=== PATIENT | male | born 1935 | race African-American/Black ===

== ENCOUNTER 2016-07-12 14:47 | Inpatient (IN) | payer MEDICARE, OTHER ==
[2016-07-09 11:10] LABS: INTERNATIONAL NORMAL RATI 2.3 UNITS (-); PROTIME (NOT ORD) 25.2 SEC (12.0-14.5)
--- NOTE | ~2016-07-12 | DS ---
Discharge Summary [address] [place]. [address] NAME: LOTTIE TIRADO JR : 39 STATUS : DIS IN PAT#: [id number] AGE: 80 ADM/REG DATE : 07/12/16 MR#: [id number] REPORT SERV DATE: 07/17/16 DICTATED BY: OLIVIA MESA DATE: 07/16/16 REPORT STATUS : Draft TRANSCRIBED BY: MODL DATE: 07/16/16 ADMISSION DATE: 07/12/2016 DISCHARGE DATE: 07/16/2016 REASON FOR ADMISSION: Abdominal pain secondary to volvulus. HISTORY OF PRESENT ILLNESS: Please refer to Dr. Sun's history and physical dated 07/12/2016 regarding the patient's admission. In brief, the patient is admitted to Hospice Service for his acute kidney injury along with volvulus. HOSPITAL COURSE: 1. The patient had an uncomplicated hospital course for his acute kidney injury on CKD, stage 3. The patient's nephrotoxic agents were held. CT scan was unremarkable for any urinary obstruction. He was given IV fluids. His acute kidney injury had resolved, and he is back to his baseline. 2. For sigmoid distention concerning for volvulus, Dr. Douglas with GI Medicine performed a colonoscopy and decompressed his volvulus without any complications. The following day, the patient had complained of some lower abdominal pain. I had obtained a KUB, which was concerning for possible sigmoid volvulus. I had asked Dr. Douglas to revisit the patient, and he had consulted Surgery without re-evaluation. Surgery saw the patient the following day, at which point, his abdominal pain had resolved and there was no surgical intervention, and the patient was back to his baseline. 3. History of atrial fibrillation. He is on chronic anticoagulation. He is rate controlled. This has been stable. 4. Hypothyroidism. This has been stable on his medications. 5. Hypertension, which also is stable. DISPOSITION: The patient will be discharged today to [facility] back for long-term SNF in a stable condition. DISCHARGE DIAGNOSES: 1. Acute on chronic kidney disease stage 3, now resolved. 2. Volvulus, now resolved. 3. Paroxysmal atrial fibrillation, on chronic Coumadin. PROCEDURES: 1. Consultation with Dr. Douglas, colonoscopy. 2. Consultation with Surgery, [facility]. 3. Water-soluble contrasted enema study. DISCHARGE MEDICATIONS: 1. Vitamin C 500 mg twice a day. 2. Aspirin 81 mg daily. 3. Amiodarone 200 mg twice a day. 4. Bentyl 20 mg 3 times a day. 5. Colace 100 mg every 48 hours. Discharge Summary [address] [address] NAME: LOTTIE TIRADO JR : 37 STATUS : DIS IN PAT#: [id number] AGE: 80 ADM/REG DATE : 07/12/16 MR#: [id number] REPORT SERV DATE: 07/17/16 DICTATED BY: OLIVIA MESA DATE: 07/16/16 REPORT STATUS : Draft TRANSCRIBED BY: RENNY DATE: 07/16/16 6. Xalatan daily. 7. Levothyroxine. 8. MiraLAX twice a day. 9. Coumadin 2.5 mg every evening. 10.Alpha-lipoic acid 600 mg daily. 11.Fenofibrate 54 mg daily. 12.Lasix 40 mg daily. 13.Lisinopril 10 mg daily. 14.K-Dur 20 mEq daily. 15.[place] p.r.n. 16.Benefiber 1 teaspoon twice a day. DISPOSITION: He was discharged back to [facility]. This is Dr. Olivia Mesa spending over 30 minutes on discharge planning and coordination of care on Mr. Tirado. CAROL/RENNY Olivia Mesa MD / [id number] CC: Olivia Mesa MD
--- NOTE | ~2016-07-12 | HP ---
History And Physical [address] [place]. [address] NAME: LOTTIE TIRADO JR : 37 STATUS : ADM IN PAT#: [id number] AGE: 80 ADM/REG DATE : 07/12/16 MR#: [id number] REPORT SERV DATE: 07/13/16 DICTATED BY: SELAM ZABALA DATE: 07/12/16 REPORT STATUS : Draft TRANSCRIBED BY: MODL DATE: 07/12/16 DATE OF ADMISSION: 07/12/2016 POINT OF ENTRY: [facility] Emergency Department. CHIEF COMPLAINT: Abdominal pain. HISTORY OF PRESENT ILLNESS: Mr. Tirado is a 80-year-old gentleman with history of chronic kidney disease stage 3, baseline creatinine approximately 1.3 to 1.6 as well as hypertension; atrial fibrillation, on Coumadin; and hypothyroidism who presents to the emergency department today with reports of abdominal pain and distention. The patient reports that for the past few days he has had some vague complaints of lower quadrant and periumbilical abdominal pain with some associated nausea. He states he denies any vomiting. He states his last bowel movement was today. He states that his bowel movements recently have been more liquid and loose in nature. The patient also reports some chills and shakes today, but denies any fevers or night sweats. Also, denies any chest pain, shortness of breath, dysuria, melena, hematochezia, or hemoptysis. Initial evaluation in the emergency department notable for a creatinine of 3.05, above his baseline, as well as a CT of the abdomen and pelvis concerning for possible redundant sigmoid colon with distention of approximately 11 cm; volvulus was not identified, but could not be ruled out. The patient was subsequently admitted to the Hospitalist Service for further evaluation and management. COMPREHENSIVE REVIEW OF SYSTEMS: Otherwise, negative unless listed in history of present illness. PREVIOUS MEDICAL HISTORY: 1. Chronic kidney stage 3, baseline creatinine approximately 1.3 to 1.6. 2. Paroxysmal atrial fibrillation, on Coumadin. 3. Hypertension. 4. Spinal stenosis. 5. Hypothyroidism. 6. History of diabetes. No longer on medications. 7. Status post pacemaker insertion. SURGICAL HISTORY: Bilateral total hip. ALLERGIES: NO KNOWN DRUG ALLERGIES. HOME MEDICATIONS: 1. Amiodarone 200 mg b.i.d. 2. Vitamin C 500 mg b.i.d. History And Physical [address] [place]. [address] NAME: LOTTIE TIRADO JR : 37 STATUS : ADM IN PAT#: [id number] AGE: 80 ADM/REG DATE : 07/12/16 MR#: [id number] REPORT SERV DATE: 07/13/16 DICTATED BY: SELAM ZABALA DATE: 07/12/16 REPORT STATUS : Draft TRANSCRIBED BY: RENNY DATE: 07/12/16 3. Aspirin 81 mg daily. 4. Bentyl 20 mg t.i.d. 5. Colace 100 mg q.48 hours. 6. Lofibra 54 mg daily. 7. Lasix 20 mg q.h.s. 8. Lasix 40 mg daily. 9. Dante 5/325 one tab q.4 hours p.r.n. 10.Xalatan drops q.h.s. 11.Levothyroxine 100 mcg daily. 12.Alpha lipoic acid 600 mg daily. 13.Lisinopril 10 mg daily. 14.MiraLAX one packet daily. 15.Potassium chloride 20 mEq daily. 16.Coumadin 2.5 mg daily. SOCIAL HISTORY: Denies any tobacco, alcohol, or illicits. He is now a long-term resident of [facility]. FAMILY MEDICAL HISTORY: Mother of complications of gunshot wound. Father with cancer, type unknown. Siblings of complications of alcoholism. LABS AND IMAGIN. White count is 10.4, hemoglobin 11.2, hematocrit is 31.0, platelet count is 202. INR 2.7. 2. Sodium is 138, potassium 3.3, chloride 102, carbon dioxide 28, BUN 58, creatinine 3.05, glucose is 122, calcium is 8.5, protein 7.2, albumin is 2.9, bilirubin is 0.7, ALT is 23, AST 20, alkaline phosphatase is 43. 3. Lipase is 131. 4. Urinalysis. Spec gravity is 1.013. No evidence of any infection. CT scan of the abdomen and pelvis shows a redundant sigmoid colon with very prominent gas distention of the sigmoid colon measured up to 11 cm in diameter. No definite twist or volvulus was identified, however, intermittent volvulus was not excluded in the appropriate clinical setting. Sigmoid colon extends in the upper abdomen anterior to the liver. There is some focal narrowing of the mid sigmoid colon, likely due to folding rather than stenosis. Moderate to large amount of stool in the ascending and transverse colon. PHYSICAL EXAMINATION: VITAL SIGNS: Temperature is 98.1 degrees Fahrenheit, pulse is 65, respirations 18, saturating 99% on room air, blood pressure is 104/55. On recheck, blood pressure is now to 127/71, pulse is 65, saturating 93% on room air. GENERAL: The patient is awake, alert, in no acute distress. Resting comfortably in bed. He is a well-developed, well-nourished, elderly male. HEENT: Atraumatic and normocephalic. Moist mucous membranes. Pupils equal, round, reactive to light and accommodation. Extraocular eye movements are intact. No scleral icterus. NECK: No jugular venous distention. No carotid bruits. CARDIAC: Regular rate and rhythm. No murmurs, rubs, or gallops. Normal S1, S2. History And Physical [address] [address] NAME: LOTTIE TIRADO JR : 39 STATUS : ADM IN [facility]#: [id number] AGE: 80 ADM/REG DATE : 07/12/16 MR#: [id number] REPORT SERV DATE: 07/13/16 DICTATED BY: SELAM ZABALA DATE: 07/12/16 REPORT STATUS : Draft TRANSCRIBED BY: RENNY DATE: 07/12/16 LUNGS: Clear to auscultation bilaterally. No wheezes, rhonchi, or crackles. ABDOMEN: Just obese and distended. No rebound, guarding, or rigidity. It is soft and nontender. Does have some tympany on percussion anteriorly. LOWER EXTREMITIES: Warm and perfused. No cyanosis or clubbing. Has trace pedal edema. SKIN: Warm and dry. PSYCH: Affect is appropriate. NEURO: Alert and oriented x3. Cranial nerves II through XII grossly intact. Speech is normal. Gait not assessed. ASSESSMENT AND PLAN: Mr. Tirado is a 80-year-old gentleman, history of chronic kidney stage 3, who presents with abdominal pain, and found to have evidence of significant sigmoid colonic distention concerning for possible colonic obstruction versus sigmoid volvulus as well as acute kidney injury. PROBLEM LIST: 1. Acute kidney injury on chronic kidney stage 3. 2. Prominent sigmoid distention concerning for colonic obstruction versus sigmoid volvulus. 3. History of atrial fibrillation, on anticoagulation. 4. Hypertension. 5. Hypothyroidism. PLAN: 1. Acute kidney injury on chronic kidney stage 3. We will hold the patient's nephrotoxic medications including Lasix and lisinopril. Provide IV fluid hydration. Checking urine lytes. A CT of the abdomen and pelvis was unremarkable for evidence of urinary obstruction. 2. Sigmoid distention concerning for volvulus versus colonic obstruction. Dr. Douglas of GI was consulted. He recommends placement of a rectal tube for possible decompression overnight. He will see the patient in the morning for possible decompressive as well as diagnostic colonoscopy. In the meantime, we will make the patient nothing by mouth. We will hold off on any laxatives or enema at this time. 3. Paroxysmal atrial fibrillation, on Coumadin. The patient's INR is currently 2.7. We will continue Coumadin as managed by Pharmacy. 4. DVT prophylaxis. The patient is on Coumadin. CODE STATUS: The patient wished to be full code. FRIEDAB/RENNY Selam Zabala MD / [id number] History And Physical [address] [address] NAME: LOTTIE TIRADO : 39 STATUS : ADM IN [facility]#: [id number] AGE: 80 ADM/REG DATE : 07/12/16 MR#: [id number] REPORT SERV DATE: 07/13/16 DICTATED BY: SELAM ZABALA DATE: 07/12/16 REPORT STATUS : Draft TRANSCRIBED BY: MELBAL DATE: 07/12/16 CC: MD Jamie Bunch M.D.
--- NOTE | ~2016-07-12 | CN ---
Consultation Report [facility] [address]. [address] NAME: LOTTIE TIRADO JR : 39 STATUS : ADM IN [facility]#: [id number] AGE: 80 ADM/REG DATE : 07/12/16 MR#: [id number] REPORT SERV DATE: 07/13/16 DICTATED BY: ALTAF HOROWITZ DATE: 07/13/16 REPORT STATUS : Draft TRANSCRIBED BY: MODL DATE: 07/13/16 DATE OF CONSULTATION: 07/12/2016 REASON FOR CONSULTATION: The patient admitted to emergency room with a complaint of abdominal distention, abdominal pain, and also a CT of the abdomen suggesting very dilated sigmoid colon up to 11 cm size, and now I was called to help with deflation of the colon. HISTORY OF PRESENT ILLNESS: Mr. Tirado is a 80-year-old male with multiple chronic medical diseases, including kidney disease stage 3, creatinine between 1.3 to 1.6; hypertension; atrial fibrillation, on Coumadin; and also hypothyroidism. The patient has been having some trouble emptying himself and started having some abdominal discomfort around periumbilical area associated with some nausea, and he had some small bowel movements, almost like watery stool, but still was not able to empty completely. Denies any hematochezia, hematemesis, or melena. It seems to be his creatinine was little higher on admission. CT of the abdomen noted to have sigmoid colon with approximately 11 cm size, volvulus was not identified. PAST MEDICAL HISTORY: As mentioned including chronic kidney disease stage 3; paroxysmal atrial fibrillation, on Coumadin; history of hypertensions; history of spinal stenosis; history of diabetes; and status post pacemaker insertion. PAST SURGICAL HISTORY: Bilateral total hip replacement. ALLERGIES: NO KNOWN DRUG ALLERGIES. HOME MEDICATIONS: Including amiodarone 200 mg twice a day, vitamin C 500 mg twice a day, aspirin 81 mg a day, Bentyl 20 mg three times a day, Colace 100 mg q.48 hours, Lofibra 54 mg daily, Lasix 20 mg at night, Lasix 40 mg daily, [place] 5/325 one tablet every four hours as needed, Xalatan drops as needed, levothyroxine 100 mcg daily, alpha-lipoic acid 600 mg daily, lisinopril 10 mg daily, MiraLax one packet daily, potassium chloride 20 mEq daily, and Coumadin 2.5 mg daily. SOCIAL HISTORY: No tobacco or alcohol use, and he is a long-term resident of [facility]. FAMILY HISTORY: Significant for mother who had a gunshot wound, father had cancer of unknown kind, and siblings had some problem with alcoholism. REVIEW OF SYSTEMS: Noted from the chart. Denied any headache. No chest pain. No difficulty breathing. No acute change in vision or hearing. No acute neurological or psychiatric symptoms. Abdominal distention has decreased over the time with rectal tube and Gastrografin enema. All other systems reviewed as per history. PHYSICAL EXAMINATION: Consultation Report [address] [place]. [address] NAME: LOTTIE TIRADO JR : 39 STATUS : ADM IN [facility]#: [id number] AGE: 80 ADM/REG DATE : 07/12/16 MR#: [id number] REPORT SERV DATE: 07/13/16 DICTATED BY: ALTAF HOROWITZ DATE: 07/13/16 REPORT STATUS : Draft TRANSCRIBED BY: RENNY DATE: 07/13/16 VITAL SIGNS: Blood pressure 124/58; temperature 98.3, T-max was 99.8; pulse about 60 to 80 per minute, and respirations about 16 to 18 per minute. GENERAL: This is a ruiz male, in no acute distress. HEENT: No icterus. [place] conjunctivae. NECK: Supple. No JVD. CHEST: Bilateral fair air flow. Normal excursions. HEART: S1 and S2. Regular rate and rhythm. No murmur. ABDOMEN: Soft. Bowel sounds present. No hepatosplenomegaly. Very minimal tenderness in mid and lower part of the abdomen. No guarding. No rebound tenderness. EXTREMITIES: No clubbing, cyanosis, or edema. NEUROLOGICAL: Alert and oriented, moving all extremities. LABORATORY DATA: As per chart. Hemoglobin was 11.2; hematocrit 31.0; platelet count 202,000; white count 10.4. PT/INR was 2.7. Sodium 138, potassium 3.3, BUN 58, creatinine 3.05, calcium 8.5, protein 7.2, bilirubin 0.7, lipase 131. CT scan of the abdomen as mentioned in the history. ASSESSMENT: The patient with significant dilatation of the sigmoid colon and some retained stool in the ascending and transverse colon. The Gastrografin enema report is also noted. PLAN: At this time is to decompress the colon as much as we can go with unprepped colon and decompress it so that the functions may return back to normal. Also, we will give some MiraLax three to four times just to start the process of cleaning him out from top to bottom. Also, advised the staff to maintain electrolytes. FRANCI/MODL Altaf Horowitz M.D. / [id number] CC: Bennett Mesa MD
--- NOTE | ~2016-07-12 | EGD ---
EGD REPORT [facility] [address] [place] [address] NAME: BYRON TIRADO JR : 39 STATUS : ADM IN PAT#: [id number] AGE: 80 ADM/REG DATE : 07/12/16 MR#: [id number] REPORT SERV DATE: 07/13/16 DICTATED BY: DIANE HOROWITZ DATE: 07/13/16 REPORT STATUS : Draft TRANSCRIBED BY: [employer] DATE: 07/13/16 [facility] Patient Name: Byron Tirado Jr Date of : 1935 Attending MD: DIANE HOROWITZ MD Procedure Date No Time: 07/13/2016 Procedure: Colonoscopy Indications: Therapeutic procedure, Evaluation on imaging study of clinically significant abnormality, To deflate abnormaly dilated sigmoid colon. Medicines: Monitored Anesthesia Care Complications: No immediate complications. Procedure: Pre-Anesthesia Assessment: - ASA Grade Assessment: III - A patient with severe systemic disease. After I obtained informed consent, the scope was passed under direct vision. Throughout the procedure, the patient's blood pressure, pulse, and oxygen saturations were monitored continuously. The PCF [id number] was introduced through the anus and advanced to the hepatic flexure for evaluation. This was the intended extent. The colonoscopy was technically difficult and complex due to poor bowel prep with stool present. The patient tolerated the procedure well. The quality of the bowel preparation was poor. Findings: The lumen of the colon (entire examined portion) was grossly dilated. Decompression of the volvulus was attempted and was successful, with complete decompression achieved. Estimated blood loss was minimal. Impression: - Preparation of the colon was poor. - Dilated in the entire examined colon. Recommendation: - Use Benefiber one teaspoon PO BID daily. - High fiber cereals once a day. Four servings of cooked vegetables a day. 5 to 6 glasses of water a day. Miralax 17 gm with 8 oz of water three times a week. Avoid white flour foods and caffeine. Yogurt and fresh fruits daily. - Return to GI clinic in 2 weeks. Procedure Code(s): --- Professional --- 01703, 52, Colonoscopy, flexible, proximal to splenic EGD REPORT [facility] [address] [address] [address] NAME: BYRON TIRADO JR : 39 STATUS : ADM IN PAT#: [id number] AGE: 80 ADM/REG DATE : 07/12/16 MR#: [id number] REPORT SERV DATE: 07/13/16 DICTATED BY: DIANE HOROWITZ DATE: 07/13/16 REPORT STATUS : Draft TRANSCRIBED BY: [employer] DATE: 07/13/16 flexure; diagnostic, with or without collection of specimen(s) by brushing or washing, with or without colon decompression (separate procedure) Diagnosis Code(s): --- Professional --- R93.3, Abnormal findings on diagnostic imaging of other parts of digestive tract K59.3, Megacolon, not elsewhere classified CPT copyright 2013 [employer]. All rights reserved. The codes documented in this report are preliminary and upon edging machine operator review may be revised to meet current compliance requirements. DIANE HOROWITZ MD 07/13/2016 12:58 PM This report has been signed electronically. Number of Addenda: 0 Note Initiated On: 07/13/2016 12:10 PM Scope Withdrawal Time 0 hours 0 minutes 0 seconds [address] [place] [address]
[~2016-07-12 14:47] MED LIST: ACET500CAP PO; ACTOS30 PO; ALPHA LIPOIC300 MG PO; ASAB PO; BENTYL20 PO; C2 PO; C5; CORDARONE PO; COREG12 PO; COUMADIN3 MG PO; COUMADIN4 MG PO; HALF81 PO; IRON325 MG PO; L20 PO; LEVOTHYROXIN25 MCG PO; LISINOPRIL40 MG PO; LOFIBRA54 MG PO; NORV10 PO; PCET PO; RX EYE DROP; SPIRO25 PO; SYN.025B PO; VITAMIN D OTC PO; XALAT OPH; ZESTRIL40 MG PO
[2016-07-12 15:39] LABS: BASOPHILS 0.1 %; BASOPHILS ABSOLUTE 0.01 10/3/uL (0.0-0.16); EOSINOPHILS 1.4 %; EOSINOPHILS ABSOLUTE 0.15 10/3/uL (0.0-0.53); HEMOGLOBIN 11.2 g/dL (13.6-17.8); IMMATURE GRANULOCYTES 0.8 %; IMMATURE GRANULOCYTES ABSOLUTE 0.08 10/3/uL (0.0-0.11); LYMPHOCYTES 11.8 %; LYMPHOCYTES ABSOLUTE 1.23 10/3/uL (0.67-4.30); MANUAL DIFF NO %; MEAN CORPUS HGB CONC 36.1 g/dL (32.0-36.0); MEAN CORPUSCULAR HEMOGLOB 27.4 pg (26.0-34.0); MEAN CORPUSCULAR VOLUME 75.8 fL (80-100); MEAN PLATELET VOLUME 10.5 fL (9.2-13.0); MONOCYTES 10.7 %; MONOCYTES ABSOLUTE 1.11 10/3/uL (0.21-1.20); NEUTROPHILS 75.2 %; NEUTROPHILS ABSOLUTE 7.84 10/3/uL (2.02-8.40); PLATELET COUNT 202 10/3/uL (150-400); RBC DISTRIBUTION WIDTH 14.6 % (12.0-16.0); RED CELL COUNT 4.09 10/6/uL (4.7-6.1); WHITE BLOOD CELLS 10.4 10/3/uL (4.5-10.5)
[2016-07-12 15:46] LABS: INTERNATIONAL NORMAL RATI 2.7 UNITS (-); PROTIME (NOT ORD) 28.5 SEC (12.0-14.5)
[2016-07-12 15:47] LABS: ASCORBIC ACID (UR NOT ORDER) 40 (NEG); BILIRUBIN, URINE NEGATIVE (NEG); ER URINALYSIS TAT 0 Hrs 14 Mins; KETONE, URINE NEGATIVE (NEG); LEUKOCYTE ESTERASE(NOT OR NEG (NEG); NITRITE (URINE) NEG (NEG); PARTIAL THROMBO TIME 82.9 SEC (22.5-37.2); WBC (NOT ORDERED) (RFLEX) < 1 (0-5)
[2016-07-12 15:52] LABS: A/G RATIO 0.7 (0.7-1.9); ALBUMIN 2.9 G/DL (3.5-5.0); ALKALINE PHOSPHATASE 43 U/L (45-117); BUN (BLOOD UREA NITROGEN) 58 MG/DL (6-23); CALCIUM, SERUM 8.5 MG/DL (8.5-10.4); CHLORIDE, SERUM 102 MMOL/L (96-112); CO2 (CARBON DIOXIDE) 28 MMOL/L (24-34); CREATININE 3.05 MG/DL (0.70-1.30); GFR AFRICAN AMERICAN 22 ML/MIN (>=60); GFR NON AFRICAN AMERICAN 19 ML/MIN (>=60); GLOBULIN 4.3 G/DL (2.5-4.1); GLUCOSE, SERUM 122 MG/DL (60-99); POTASSIUM, SERUM 3.3 MMOL/L (3.5-5.3); SGOT(AST) 22 U/L (5-40); SGPT(ALT) 23 U/L (5-65); SODIUM, SERUM 138 MMOL/L (135-148); TOTAL BILIRUBIN 0.7 MG/DL (0-1.2); TOTAL PROTEIN 7.2 G/DL (6.0-8.5)
[2016-07-12] MEDS ORDERED: ALPHA LIPOIC300 MG PO (16:29)
[2016-07-12] MEDS ORDERED: CORDARONE PO (16:29)
[2016-07-12] MEDS ORDERED: HALF81 PO (16:30)
[2016-07-12] MEDS ORDERED: BENTYL20 PO (16:31)
[2016-07-12] MEDS ORDERED: DSS PO (16:32)
[2016-07-12] MEDS ORDERED: LOFIBRA54 MG PO (16:33)
[2016-07-12] MEDS ORDERED: L20 PO (16:34)
[2016-07-12] MEDS ORDERED: L40 PO (16:34)
[2016-07-12] MEDS ORDERED: LEVOTHYROXIN100 MCG PO (16:34)
[2016-07-12] MEDS ORDERED: XALAT OPH (16:34)
[2016-07-12] MEDS ORDERED: KDUR20 PO (16:35)
[2016-07-12] MEDS ORDERED: MIRALAX POWDER1 PKT PO (16:35)
[2016-07-12] MEDS ORDERED: PRIN10 PO (16:35)
[2016-07-12] MEDS ORDERED: NORCO1 TA1 PO (16:36)
[2016-07-12] MEDS ORDERED: VITC500 PO (16:36)
[2016-07-12] MEDS ORDERED: C25 PO (16:36)
[2016-07-12 23:04] LABS: FREE T4 2.01 NG/DL (0.76-1.46); PHOSPHORUS, SERUM 2.9 MG/DL (2.5-4.5); ULTRASENSITIVE TSH 0.369 MCIU/ML (0.358-3.740)
[2016-07-13 01:42] LABS: PHOSPHORUS, SERUM 2.3 MG/DL (2.5-4.5)
[2016-07-13 06:42] LABS: BASOPHILS 0.1 %; BASOPHILS ABSOLUTE 0.01 10/3/uL (0.0-0.16); EOSINOPHILS 1.1 %; EOSINOPHILS ABSOLUTE 0.09 10/3/uL (0.0-0.53); HEMOGLOBIN 11.3 g/dL (13.6-17.8); IMMATURE GRANULOCYTES 0.7 %; IMMATURE GRANULOCYTES ABSOLUTE 0.06 10/3/uL (0.0-0.11); LYMPHOCYTES 14.2 %; MEAN CORPUS HGB CONC 36.5 g/dL (32.0-36.0); MEAN CORPUSCULAR HEMOGLOB 27.8 pg (26.0-34.0); MEAN CORPUSCULAR VOLUME 76.2 fL (80-100); MEAN PLATELET VOLUME 10.6 fL (9.2-13.0); MONOCYTES 13.5 %; MONOCYTES ABSOLUTE 1.14 10/3/uL (0.21-1.20); NEUTROPHILS 70.4 %; NEUTROPHILS ABSOLUTE 5.94 10/3/uL (2.02-8.40); PLATELET COUNT 220 10/3/uL (150-400); RBC DISTRIBUTION WIDTH 14.6 % (12.0-16.0); RED CELL COUNT 4.07 10/6/uL (4.7-6.1); WHITE BLOOD CELLS 8.4 10/3/uL (4.5-10.5)
[2016-07-13 06:47] LABS: MANUAL DIFF NO %
[2016-07-13 06:48] LABS: INTERNATIONAL NORMAL RATI 2.4 UNITS (-); PROTIME (NOT ORD) 25.6 SEC (12.0-14.5)
[2016-07-13 06:58] LABS: ALBUMIN 2.8 G/DL (3.5-5.0); BUN (BLOOD UREA NITROGEN) 45 MG/DL (6-23); CALCIUM, SERUM 8.5 MG/DL (8.5-10.4); CHLORIDE, SERUM 107 MMOL/L (96-112); CO2 (CARBON DIOXIDE) 23 MMOL/L (24-34); CREATININE 1.92 MG/DL (0.70-1.30); GFR AFRICAN AMERICAN 38 ML/MIN (>=60); GFR NON AFRICAN AMERICAN 33 ML/MIN (>=60); GLUCOSE, SERUM 103 MG/DL (60-99); PHOSPHORUS, SERUM 2.3 MG/DL (2.5-4.5); POTASSIUM, SERUM 3.1 MMOL/L (3.5-5.3); SODIUM, SERUM 142 MMOL/L (135-148)
[2016-07-14 05:06] LABS: INTERNATIONAL NORMAL RATI 3.4 UNITS (-)
[2016-07-14 05:14] LABS: PROTIME (NOT ORD) 33.7 SEC (12.0-14.5)
[2016-07-14 13:17] LABS: BASOPHILS 0.4 %; BASOPHILS ABSOLUTE 0.03 10/3/uL (0.0-0.16); EOSINOPHILS 1.6 %; EOSINOPHILS ABSOLUTE 0.12 10/3/uL (0.0-0.53); HEMATOCRIT 30.6 % (40.0-51.0); HEMOGLOBIN 10.9 g/dL (13.6-17.8); IMMATURE GRANULOCYTES 1.6 %; IMMATURE GRANULOCYTES ABSOLUTE 0.12 10/3/uL (0.0-0.11); LYMPHOCYTES 14.2 %; LYMPHOCYTES ABSOLUTE 1.04 10/3/uL (0.67-4.30); MEAN CORPUS HGB CONC 35.6 g/dL (32.0-36.0); MEAN CORPUSCULAR HEMOGLOB 27.4 pg (26.0-34.0); MEAN CORPUSCULAR VOLUME 76.9 fL (80-100); MEAN PLATELET VOLUME 10.1 fL (9.2-13.0); MONOCYTES 12.5 %; MONOCYTES ABSOLUTE 0.91 10/3/uL (0.21-1.20); NEUTROPHILS 69.7 %; NEUTROPHILS ABSOLUTE 5.08 10/3/uL (2.02-8.40); PLATELET COUNT 229 10/3/uL (150-400); RBC DISTRIBUTION WIDTH 14.3 % (12.0-16.0); RED CELL COUNT 3.98 10/6/uL (4.7-6.1); WHITE BLOOD CELLS 7.3 10/3/uL (4.5-10.5)
[2016-07-14 13:18] LABS: MANUAL DIFF NO %
[2016-07-14 13:34] LABS: CALCIUM, SERUM 8.7 MG/DL (8.5-10.4); CHLORIDE, SERUM 109 MMOL/L (96-112); CO2 (CARBON DIOXIDE) 26 MMOL/L (24-34); CREATININE 1.53 MG/DL (0.70-1.30); GFR AFRICAN AMERICAN 50 ML/MIN (>=60); GFR NON AFRICAN AMERICAN 43 ML/MIN (>=60); PHOSPHORUS, SERUM 1.7 MG/DL (2.5-4.5); POTASSIUM, SERUM 3.2 MMOL/L (3.5-5.3); SODIUM, SERUM 144 MMOL/L (135-148)
[2016-07-14 13:35] LABS: BUN (BLOOD UREA NITROGEN) 25 MG/DL (6-23); GLUCOSE, SERUM 167 MG/DL (60-99)
[2016-07-15 04:35] LABS: BASOPHILS 0.4 %; BASOPHILS ABSOLUTE 0.03 10/3/uL (0.0-0.16); EOSINOPHILS 3.2 %; EOSINOPHILS ABSOLUTE 0.26 10/3/uL (0.0-0.53); HEMATOCRIT 29.1 % (40.0-51.0); HEMOGLOBIN 10.3 g/dL (13.6-17.8); IMMATURE GRANULOCYTES 1.8 %; IMMATURE GRANULOCYTES ABSOLUTE 0.15 10/3/uL (0.0-0.11); LYMPHOCYTES 17.6 %; LYMPHOCYTES ABSOLUTE 1.43 10/3/uL (0.67-4.30); MEAN CORPUS HGB CONC 35.4 g/dL (32.0-36.0); MEAN CORPUSCULAR HEMOGLOB 27.1 pg (26.0-34.0); MEAN CORPUSCULAR VOLUME 76.6 fL (80-100); MONOCYTES 14.2 %; MONOCYTES ABSOLUTE 1.15 10/3/uL (0.21-1.20); NEUTROPHILS 62.8 %; NEUTROPHILS ABSOLUTE 5.09 10/3/uL (2.02-8.40); PLATELET COUNT 242 10/3/uL (150-400); RBC DISTRIBUTION WIDTH 14.6 % (12.0-16.0); WHITE BLOOD CELLS 8.1 10/3/uL (4.5-10.5)
[2016-07-15 04:37] LABS: MANUAL DIFF NO %
[2016-07-15 04:38] LABS: INTERNATIONAL NORMAL RATI 4.6 UNITS (-)
[2016-07-15 04:45] LABS: PROTIME (NOT ORD) 43.1 SEC (12.0-14.5)
[2016-07-15 05:03] LABS: BUN (BLOOD UREA NITROGEN) 17 MG/DL (6-23); CALCIUM, SERUM 8.3 MG/DL (8.5-10.4); CHLORIDE, SERUM 110 MMOL/L (96-112); CO2 (CARBON DIOXIDE) 23 MMOL/L (24-34); CREATININE 1.07 MG/DL (0.70-1.30); GFR AFRICAN AMERICAN 77 ML/MIN (>=60); GFR NON AFRICAN AMERICAN 66 ML/MIN (>=60); GLUCOSE, SERUM 122 MG/DL (60-99); PHOSPHORUS, SERUM 1.6 MG/DL (2.5-4.5); POTASSIUM, SERUM 3.1 MMOL/L (3.5-5.3); SODIUM, SERUM 144 MMOL/L (135-148)
[2016-07-15 19:45] LABS: INTERNATIONAL NORMAL RATI 4.3 UNITS (-); PROTIME (NOT ORD) 41.1 SEC (12.0-14.5)
[2016-07-16 06:33] LABS: BASOPHILS 0.4 %; BASOPHILS ABSOLUTE 0.03 10/3/uL (0.0-0.16); EOSINOPHILS 3.2 %; EOSINOPHILS ABSOLUTE 0.24 10/3/uL (0.0-0.53); HEMATOCRIT 30.6 % (40.0-51.0); HEMOGLOBIN 10.7 g/dL (13.6-17.8); IMMATURE GRANULOCYTES 1.2 %; IMMATURE GRANULOCYTES ABSOLUTE 0.09 10/3/uL (0.0-0.11); LYMPHOCYTES 15.1 %; LYMPHOCYTES ABSOLUTE 1.15 10/3/uL (0.67-4.30); MEAN CORPUSCULAR HEMOGLOB 27.2 pg (26.0-34.0); MEAN CORPUSCULAR VOLUME 77.7 fL (80-100); MEAN PLATELET VOLUME 10.2 fL (9.2-13.0); MONOCYTES 11.2 %; MONOCYTES ABSOLUTE 0.85 10/3/uL (0.21-1.20); NEUTROPHILS 68.9 %; NEUTROPHILS ABSOLUTE 5.25 10/3/uL (2.02-8.40); PLATELET COUNT 284 10/3/uL (150-400); RBC DISTRIBUTION WIDTH 14.5 % (12.0-16.0); RED CELL COUNT 3.94 10/6/uL (4.7-6.1); WHITE BLOOD CELLS 7.6 10/3/uL (4.5-10.5)
[2016-07-16 06:35] LABS: MANUAL DIFF NO %
[2016-07-16 06:37] LABS: PROTIME (NOT ORD) 38.4 SEC (12.0-14.5)
[2016-07-16 06:46] LABS: CALCIUM, SERUM 8.9 MG/DL (8.5-10.4); CHLORIDE, SERUM 110 MMOL/L (96-112); CO2 (CARBON DIOXIDE) 25 MMOL/L (24-34); CREATININE 1.11 MG/DL (0.70-1.30); GFR AFRICAN AMERICAN 73 ML/MIN (>=60); GFR NON AFRICAN AMERICAN 63 ML/MIN (>=60); GLUCOSE, SERUM 113 MG/DL (60-99); PHOSPHORUS, SERUM 1.7 MG/DL (2.5-4.5); POTASSIUM, SERUM 3.2 MMOL/L (3.5-5.3); SODIUM, SERUM 144 MMOL/L (135-148)
[2016-07-16 06:47] LABS: BUN (BLOOD UREA NITROGEN) 12 MG/DL (6-23)
[2016-10-09] MEDS ORDERED: ALPHA LIPOIC300 MG PO (19:57)
[2016-10-09] MEDS ORDERED: CORDARONE PO (19:58)
[2016-10-09] MEDS ORDERED: HALF81 PO (19:59)
[2016-10-09] MEDS ORDERED: DSS PO (19:59)
[2016-10-09] MEDS ORDERED: BENTYL20 PO (19:59)
[2016-10-09] MEDS ORDERED: L20 PO (20:00)
[2016-10-09] MEDS ORDERED: LOFIBRA54 MG PO (20:00)
[2016-10-09] MEDS ORDERED: METPAKSF PO (20:01)
[2016-10-09] MEDS ORDERED: L40 PO (20:01)
[2016-10-09] MEDS ORDERED: XALAT OPH (20:01)
[2016-10-09] MEDS ORDERED: SYN1 PO (20:02)
[2016-10-09] MEDS ORDERED: PRIN10 PO (20:02)
[2016-10-09] MEDS ORDERED: KLOR-CON M2020 MEQ PO (20:02)
[2016-10-09] MEDS ORDERED: MIRALAX POWDER1 PKT PO (20:02)
[2016-10-09] MEDS ORDERED: VITAMIN D2000 UNIT PO (20:03)
[2016-10-09] MEDS ORDERED: VITC500 PO (20:03)
[2016-10-09] MEDS ORDERED: COUMADIN3 MG PO (20:03)
== END 2016-07-16 14:59 | DRG 682 ==
LOC: ER 14:47 → 5SO 20:46
PROVIDERS: Hospitalist; Internal Medicine; Internal Medicine Gastroenterology; Physical Medicine & Rehabilitation
PROC: 0D7E8ZZ Dilation of Large Intestine, Via Natural or Artificial Opening Endoscopic (ICD-10-PCS; principal; 2016-07-13 12:37)
DX: N17.9 Acute kidney failure, unspecified (principal); K56.2 Volvulus; I48.0 Paroxysmal atrial fibrillation; F44.4 Conversion disorder with motor symptom or deficit; N18.3 Chronic kidney disease, stage 3 (moderate); I12.9 Hypertensive chronic kidney disease with stage 1 through stage 4 chronic kidney disease, or unspecified chronic kidney disease; E03.9 Hypothyroidism, unspecified; Z79.01 Long term (current) use of anticoagulants; Z79.82 Long term (current) use of aspirin; Z79.899 Other long term (current) drug therapy; Z99.3 Dependence on wheelchair
CPT/HCPCS: 71010; 74000; 74176; 74270; 80048; 80053; 80069; 81001; 82570; 82962; 83605; 83690; 83735; 83935; 84100; 84132; 84300; 84439; 84443; 85025; 85610; 85730; 93005; 99285; A9270-GY; J2405